=== PATIENT | male | born 1930 | race Asian ===

== ENCOUNTER 2018-10-02 08:39 | Inpatient (IN) | payer MEDICARE, OTHER ==
--- NOTE | 2018-09-21 15:26 | HP ---
HISTORY AND PHYSICAL: DATE OF ADMISSION/SURGERY: 10/02/18 DATE OF OFFICE VISIT: 09/19/18 ATTENDING SURGEON: Dr. Bharathi Morrell.* (DICTATED BY USMAN VAZQUEZ) PROCEDURE: Left total hip replacement. CHIEF COMPLAINT: Left hip pain. HISTORY OF PRESENT ILLNESS: Wandy Wu is an 88-year-old male who has had severe left hip pain due to left hip osteoarthritis. He has failed conservative treatment options and has elected to proceed with surgery. He is scheduled to undergo left total hip replacement on 10/02/[address] Morrell. PAST MEDICAL HISTORY: He has had known cardiovascular irregularity and atrial fibrillation. He has hypertension. He has a history of prostate cancer in 1998. GI obstruction, treated by Dr. Romero in 2005. He has a history of arthritis. No history of DVT or phlebitis. No history of diabetes. PAST SURGICAL HISTORY: He had right total hip replacement in October 2012. CURRENT MEDICATIONS: 1. He is on Ambien 5 mg. 2. Amlodipine besylate 5 mg. 3. Amoxicillin 500 mg. 4. Centrum Silver. 5. Lisinopril/hydrochlorothiazide 10 mg. 6. Myrbetriq. 7. Shingrix. ALLERGIES: No known drug allergies. FAMILY HISTORY: Cancer. SOCIAL HISTORY: He lives with his spouse. He is a retired professor. He quit smoking 15 years ago. He smoked 1-1/2 packs per day. He has 1 to 2 alcoholic beverages per week. Denies recreational drug use. REVIEW OF SYSTEMS: A complete 14-point review of systems was obtained, other than HPI was negative for fevers, chills. He denies any chest pain. Negative for palpitations due to his atrial fibrillation. He was positive for some weight gain and constipation. Otherwise, all other systems are negative and noncontributory. PHYSICAL EXAMINATION GENERAL: Well-developed, well-nourished 88-year-old male, in no acute distress. Alert and oriented x3. Appropriate mood and affect. HEENT: Head is normocephalic, atraumatic. NECK: Supple with no palpable lymph nodes. LUNGS: Clear to auscultation bilaterally. No wheezes, rales, or rhonchi. CARDIAC: Regular rate and rhythm. S1, S2. No murmurs, rubs, or gallops. ABDOMEN: Soft, nontender. Positive bowel sounds throughout. MUSCULOSKELETAL: His gait is markedly antalgic on the left. He has painful range of motion of the left hip with flexion at 75 degrees, abduction painful to 20 degrees. He can barely do a left leg raise. Left knee extension is 0 degrees without any difficulty. There is no left knee swelling. No knee tenderness. SKIN: Intact without rashes or lesions. IMPRESSION: Severe left hip arthritis. PLAN: The patient is scheduled to undergo left total hip replacement. He will return to the office in 10 to 14 days postoperatively for followup and suture removal. A prescription for oxycodone was sent to the patient's pharmacy for postoperative pain management. USMAN VAZQUEZ [id number]/CPS #: [id number] MTDD
[~2018-10-02 08:39] MED LIST: Acetaminophen TAB* 325 MG PO ONE; Buffered Lidocaine 1% SYRIN* 1 ML/SYRINGE INTRADERM ONE; Dexamethasone TAB* 4 MG PO ONE; DiMENhydriNATE IV* 50 MG/ML VIAL IV PUSH PRN; Famotidine IV* 10 MG/ML 2 ML (20 mg) IV ONE; Gabapentin CAP(*) 300 MG PO ONE; HYDROcodone/ACETAMIN 5-325 MG* 1 TAB PO PRN; Lactated Ringers 1000 ML Bag* 1,000 ML IV SCH; Morphine 4 MG/ML VIAL (1 ml) 4 MG/ML VIAL IV PRN; Naloxone* 0.4 MG/ML 1 ML VIAL IV PRN; Ondansetron TAB* 4 MG PO ONE; PROCHLORPERAZINE INJ 5 MG/ML 2 ML VIAL IV PRN; Tranexamic Acid 1,000 MG in NS 0.9% 50 ML* (outpatient use) IV SCH; celeCOXIB CAP* 100 MG PO ONE; fentaNYL* 50 MCG/ML 2 ML VIAL (100 MCG VIAL) IV PRN
[2018-10-02] MEDS ORDERED: Midazolam* 1 MG/ML 5 ML VIAL (5 MG) ONE (08:59)
[2018-10-02] MEDS ORDERED: fentaNYL* 50 MCG/ML 2 ML VIAL (100 MCG VIAL) ONE (08:59)
[2018-10-02] MEDS ORDERED: KETAMINE HCL* 50 MG/ML 10 ML VIAL ONE (08:59)
[2018-10-02] MEDS ORDERED: Dexamethasone TAB* 4 MG ONE (09:11)
[2018-10-02] MEDS ORDERED: Gabapentin CAP(*) 300 MG ONE (09:11)
[2018-10-02] MEDS ORDERED: Ondansetron ODT TAB* 4 MG ONE (09:11)
[2018-10-02] MEDS ORDERED: celeCOXIB CAP* 100 MG ONE (09:11)
[2018-10-02] MEDS ORDERED: Buffered Lidocaine 1% SYRIN* 1 ML/SYRINGE INTRADERM ONE (09:12)
[2018-10-02] MEDS ORDERED: Famotidine IV* 10 MG/ML 2 ML (20 mg) ONE (09:12)
[2018-10-02] MEDS ORDERED: ceFAZolin 2 GM in NS PREMIX(*) 2 GM/100 ML BAG IVPB ONE (09:12)
[2018-10-02] MEDS ORDERED: Acetaminophen TAB* 325 MG ONE (09:12)
[2018-10-02] MEDS ORDERED: Enoxaparin(*) 30 MG/0.3 ML SYR SUBCUT ONE (12:00)
[2018-10-02] MEDS ORDERED: hydrALAZINE IV* 20 MG/ML VIAL ONE (13:17)
[2018-10-02] MEDS ORDERED: Phenylephrine 10 MG/ML VIAL* 1 ML VIAL ONE (13:17)
[2018-10-02] MEDS ORDERED: Propofol* 500 MG/50 ML BTL ONE (13:17)
[2018-10-02] MEDS ORDERED: Ondansetron TAB* 4 MG PO PRN (13:25)
[2018-10-02] MEDS ORDERED: diPHENhydraMINE IV* 50 MG/ML 1 ml VIAL (BENADRYL) IV PRN (13:25)
[2018-10-02] MEDS ORDERED: Morphine 4 MG/ML VIAL (1 ml) 4 MG/ML VIAL IV PRN (13:25)
[2018-10-02] MEDS ORDERED: Ondansetron INJ* 2 MG/ML VIAL IV PRN (13:25)
[2018-10-02] MEDS ORDERED: Docusate CAP* 100 MG PO PRN (13:25)
[2018-10-02] MEDS ORDERED: Cyclobenzaprine TAB* 10 MG PO PRN (13:25)
[2018-10-02] MEDS ORDERED: diPHENhydraMINE PO* 25 MG PO PRN (13:25)
[2018-10-02] MEDS ORDERED: Magnesium Hydroxide LIQ* 30 ML UDC PO PRN (13:25)
[2018-10-02] MEDS ORDERED: oxyCODONE TAB* 5 MG TAB PO PRN (13:25)
[2018-10-02] MEDS ORDERED: Morphine INJ* 2 MG/ML 1 ML SYRINGE (TWO MG - NEW SYRINGE VERSION) IV PRN (13:51)
--- NOTE | 2018-10-02 14:32 | OP ---
DATE OF OPERATION: 10/02/18 - ROOM #339 DATE OF : 34 SURGICAL CARE: Left hip. SURGEON: Bharathi Morrell MD ASSISTANTS: USMAN Galvez, technical assistant; Breann Estrada, surgical attendant. ANESTHESIOLOGIST: Dr. Ronny Dinh. ANESTHESIA: Spinal with IV sedation. PRE-OP DIAGNOSIS: Severe degenerative arthritis of the left hip. POST-OP DIAGNOSIS: Severe degenerative arthritis of the left hip. OPERATIVE PROCEDURE: Left total hip replacement. COMPONENTS UTILIZED: Shyann Continuum cup size 54 outer diameter with one screw. An elevated liner was placed posteriorly, high density polyethylene and the liner accommodated a 36 head. On the femoral side, an M/L taper standard size 10 stem with a -3.5, 36 mm cobalt chrome head. COMPLICATIONS: There were no complications. DRAINS: There were no drains. ESTIMATED BLOOD LOSS: 200 mL. REPLACEMENT: Crystalloid fluids. Tranexamic acid was utilized at the start of the case intravenously. DESCRIPTION OF PROCEDURE: The patient was brought to the operating room and placed on the operating room table in a supine position, then a seated position for the spinal anesthetic, then returned to the supine position. A [place] catheter was inserted. The patient was placed in a right lateral position down side, right axilla padded down side, right peroneal nerve at the fibular head padded, so there was no pressure on the peroneal nerve at the fibular head. Blankets were placed between the legs. The pelvis was secured over the ASIS and the sacrum respectively. A folded blanket was placed under the right greater trochanter to bring the left hip closer to the sealing. After prepping , draping, and sealing off, we did our [place] protocol time-out confirming Tsu Jazmin Yessenia and the plan for a left total hip replacement. We all agreed and we proceeded. The patient has had a right total hip replacement. The left hip was approached with a curving posterolateral skin incision approximately 4 inches in length from the greater trochanter distally for an inch to an inch and a half and curving proximally and posteriorly for 3.5 inches. The skin and subcutaneous tissue was divided down to the iliotibial band. The iliotibial band was opened longitudinally over the greater trochanter. A Charnley retractor was inserted. Careful hemostasis was checked and achieved throughout the case utilizing electrocautery. The abductor mechanism was retracted anteriorly with a gluteus medius with a blunt Hohmann retractor, this exposed the piriformis and conjoint tendon. Each was detached from close to its piriformis fossa insertions, each was marked with a #2 Surgidac suture and this stitch also included the underlying capsular flap. The gluteus medius was also protected and then the superior capsulotomy was performed and the hip was dislocated easily and the femoral neck was marked and cut about a fingerbreadth proximal to the lesser trochanter after measuring within the cutting guide for the M/L taper stem. The head and neck was removed. The head was completely eburnated, deformed with osteophytes. There was a rim osteophyte entirely around the acetabulum. Some of this osteophyte was removed superiorly and posteriorly. A large fragment was removed posteriorly, inferiorly. The medial osteophyte was removed with osteotomes and the acetabular fossa was carefully cleaned. Retraction on the acetabulum, sharp Hohmann anteriorly and posteriorly , blunt Hohmann superiorly and inferiorly. Reaming was done 50 through 54. At 54, we had nice bleeding subchondral and cancellous bone. After cleaning the acetabulum with saline, a 54 Continuum cup was impacted into position and 45 degrees of abduction and 20 degrees of anteversion with nice tight fit. A superior screw was placed. The elevated liner was placed posteriorly, high density polyethylene type liner. On the femoral side, we used the canal finder. Trochanteric reamer broaching was done 4, 5 through 10; 10, we had a nice fit. Trial reduction was done with a +0 with some tightness. The final M/L Taper standard size 10 stem was impacted into position after cleaning the femoral canal and it was impacted in 15 to 20 degrees of anteversion. The trial reduction was done with a +0, this was too tight, so a - 3.5 was chosen. The trunnion was cleaned with a -3.5, 36 mm head cobalt chrome type was impacted on to the trunnion. The hip was reduced without difficulty. There was a negative push- pull and extension. There was no tendency towards levering with IR, ER, and extension. Flexion allowed 90 to 100 degrees with IR and adduction approaching 30 to 40 degrees prior to dislocation. During closure , we irrigated several times with saline. We swabbed the soft tissues with clean lap sponges to remove debris. Careful hemostasis was checked and achieved and the piriformis and conjoint tendon reapproximated to the posterosuperior greater trochanter through 2 drill holes utilizing the #2 Surgidac sutures. I did not think drains were necessary. The fascia cora was closed with interrupted #1 Vicryl [id number] fashion, same with the fascia on the gluteus sammy. The deep and superficial subcu closed with 0 and then 2-0 Polysorb and then suzi on the skin. The skin was washed and dried and covered with Betadine-soaked release followed by sterile gauze, ABD pad and then paper tape. The patient was carefully returned to the hospital bed and to the recovery room in stable and satisfactory condition, having tolerated the procedure very well. [id number]/CPS #: [id number] MTDRaya
[2018-10-02] MEDS: Lactated Ringers 1000 ML Bag* 1,000 ML IV SCH (15:06)
[2018-10-02] MEDS: Acetaminophen TAB* 325 MG PO SCH (17:00)
[2018-10-02] MEDS: ceFAZolin 1 GM ADVAN(*) 1 GM in NS 0.9% 50 ML* 50 ML IVPB SCH (19:59)
--- NOTE | 2018-10-02 20:36 | CONS ---
CC: USMAN Sarkar; Dr. Morrell * CONSULTATION REPORT: DATE OF CONSULT: 10/02/18 PRIMARY CARE PROVIDER: USMAN Sarkar ORTHOPEDIC SURGEON: Dr. Morrell. REQUESTING PHYSICIAN IN CONSULT: Dr. Morrell. ATTENDING PHYSICIAN: Dr. Britni Ruiz (dictated by USMAN Morales). REASON FOR CONSULTATION: Co-medical management. HISTORY OF PRESENT ILLNESS/HOSPITAL COURSE: I refer you to Dr. oMrrell's history and physical dictated on 09/21/18 for full details; but in short, Mr. Casas is an 88-year-old male with a past medical history of atrial fibrillation, hypertension, arthritis, who has failed conservative treatment and has elected to have a left total hip replacement. He is seen in his room postoperatively with no complaints of pain to the left hip. He denies chest pain, shortness of breath, abdominal pain, nausea, vomiting, diarrhea or constipation. He denies pain in the extremities. He denies fever, chills, shortness of breath, or cough. He is comfortable and again has no pain in the left hip at this time. PAST MEDICAL HISTORY: 1. Atrial fibrillation. 2. Hypertension. 3. History of prostate cancer in 1998, status post TURP. 4. Arthritis. PAST SURGICAL HISTORY: Right total hip arthroplasty in 2002, intestinal blockage. HOME MEDICATIONS: 1. Amlodipine besylate 5 mg p.o. q.a.m. 2. Lisinopril 10 mg p.o. q.a.m. 3. Lisinopril/HCTZ 20/12.5 one tab p.o. q.a.m. 4. Myrbetriq 50 mg p.o. q.a.m. 5. Zolpidem 5 mg p.o. at bedtime p.r.n. travel. ALLERGIES: No known drug allergies, environmental allergies. FAMILY HISTORY: Negative for heart disease, cancer, CVA, diabetes. SOCIAL HISTORY: The patient states he quit smoking approximately 15 years ago. Prior to that, he smoked for approximately 20 years, half pack per day. He drinks alcohol weekly, but not daily. He is a retired [employer] professor. In the event that he is unable to make his own medical decisions, he has appointed his and healthcare proxy, Allison Casas to be his surrogate decision maker. REVIEW OF SYSTEMS: A 10-point review of systems was performed and all the pertinent positives and negatives are in the HPI. All other systems are negative. PHYSICAL EXAM: General: Mr. Casas is a well developed and well nourished. He is resting comfortably in bed. He is in no acute distress. He is pleasant and cooperative. HEENT: PERRL. EOMI. Nonicteric sclerae. Hearing grossly intact. Oral mucous membranes are moist. There are no lesions. The pharynx is clear. Cardiopulmonary: Regular rate and rhythm with S1, S2 present without murmurs, rubs, clicks, or gallops. There is no JVD. Respiratory: Symmetrical chest expansion without use of accessory muscles. Lungs are clear to auscultation bilaterally without wheeze, rhonchi, or rales. Abdomen: Flat. Bowel sounds noted in all quadrants. The abdomen is soft. There is no tenderness to palpation. Extremities: Upper extremity skin warm and smooth bilaterally. Lower extremity skin with chronic venous stasis changes and small amount of flaking skin. There is no edema. There is a left hip dressing that is clean, dry and intact. Ice pack in place. Pedal pulses are palpable. Sensation intact. Capillary refill less than 2 seconds. Neuro: The patient is awake, he is alert and oriented x3. Cranial nerves grossly intact. He is able to move all of his extremities. ASSESSMENT AND PLAN: Mr. Casas is an 88-year-old male with a past medical history of atrial fibrillation, hypertension, prostate cancer and arthritis, who presented to [facility] today for an elective left total knee arthroplasty. The patient will be admitted inpatient for: 1. Left total knee arthroplasty postop day 0. Management per Ortho Team. 2. Atrial fibrillation. The patient has a history of atrial fibrillation and is not on anticoagulation or rate controlling agents. Currently with regular rate and rhythm. Will continue to monitor. 3. Hypertension. Continue amlodipine 5, lisinopril 10 and lisinopril/HCTZ. 4. DVT prophylaxis. Per Ortho, the patient has been placed on Lovenox 30 subcu. 5. Code status. Full code. TIME SPENT: Approximately 30 minutes were spent on this consultation, greater than half of that time was spent [id number] with the patient obtaining history , performing physical, and reviewing the plan of care. The case has been reviewed with my attending Dr. Ruiz, who is in agreement with the plan of care. GUSTAVO SUMNER, USMAN [id number]/[facility] #: [id number] [facility]
[2018-10-02] MEDS: Magnesium Hydroxide LIQ* 30 ML UDC PO SCH (20:49)
[2018-10-02] MEDS: oxyCODONE TAB* 5 MG TAB PO PRN (20:49)
[2018-10-03] MEDS: Lactated Ringers 1000 ML Bag* 1,000 ML IV SCH (01:06)
[2018-10-03] MEDS: Acetaminophen TAB* 325 MG PO SCH ×3 (01:46→16:57)
[2018-10-03] MEDS: traMADol TAB* 50 MG PO PRN ×2 (02:01→08:08)
[2018-10-03] MEDS: ceFAZolin 1 GM ADVAN(*) 1 GM in NS 0.9% 50 ML* 50 ML IVPB SCH ×2 (04:22→12:06)
[2018-10-03] MEDS: oxyCODONE TAB* 5 MG TAB PO PRN (06:10)
[2018-10-03 06:14] LABS: Hematocrit 38 % (42-52); Hemoglobin 12.9 g/dL (14.0-18.0); Mean Platelet Volume 7.3 fL (7.4-10.4); Platelet Count 195 10^3/uL (150-450)
[2018-10-03 06:30] LABS: Calcium 8.7 mg/dL (8.6-10.3); EGFR African American 96.8 (>60); Potassium 3.8 mmol/L (3.5-5.0)
[2018-10-03] MEDS: Magnesium Hydroxide LIQ* 30 ML UDC PO SCH ×2 (08:06→20:48)
[2018-10-03] MEDS: Lisinopril TAB* 10 MG PO SCH (08:06)
[2018-10-03] MEDS: amLODIPine TAB* 5 MG PO SCH (08:08)
[2018-10-03] MEDS: Hydrochlorothiazide TAB* 25 MG PO SCH (08:08)
[2018-10-03] MEDS: Mirabegron (NF) 50 MG TAB PO SCH (08:09)
[2018-10-03] MEDS ORDERED: Lisinopril/HCTZ 20/12.5(NF) TAB PO SCH (09:00)
--- NOTE | 2018-10-03 11:17 | PN ---
Progress Note - Progress Note Date of Service: 10/03/18 Note: POD#1 VVStable. Hct 38%. Lytes are OK. X-ray left hip all satisfactory. Awake, alert, cooperative, and breathing easily. Left hip dry and left PT pulse is 2 plus. I/O 2390/4325. Exercises done left and right ankles, moving up, down, in , and out Imp: Stable. Plans Up with walker, drinking and incentive spirometer. Plans: Return to [facility] soon.
[2018-10-03] MEDS ORDERED: Enoxaparin(*) 30 MG/0.3 ML SYR SUBCUT ONE (12:00)
[2018-10-04] MEDS: Acetaminophen TAB* 325 MG PO SCH ×2 (01:43→08:12)
[2018-10-04 05:04] LABS: Hematocrit 36 % (42-52); Hemoglobin 12.3 g/dL (14.0-18.0); Mean Platelet Volume 7.2 fL (7.4-10.4); Platelet Count 177 10^3/uL (150-450)
[2018-10-04] MEDS: Lisinopril TAB* 10 MG PO SCH (08:12)
[2018-10-04] MEDS: Magnesium Hydroxide LIQ* 30 ML UDC PO SCH (08:12)
[2018-10-04] MEDS: amLODIPine TAB* 5 MG PO SCH (08:13)
[2018-10-04] MEDS: Hydrochlorothiazide TAB* 25 MG PO SCH (08:13)
[2018-10-04] MEDS: Mirabegron (NF) 50 MG TAB PO SCH (08:16)
[2018-10-04] MEDS ORDERED: Rivaroxaban TAB(*) 10 MG PO SCH (09:00)
--- NOTE | 2018-10-04 09:28 | PN ---
Progress Note - Progress Note Date of Service: 10/04/18 SOAP: Subjective: []Pt seen and examined at bedside, he is feeling quite well and ready for DC back to [place]. Denies any CP, SOB, dizziness, nausea. Reports many years of a fib, he is not on anticoagulation at home. Objective: []General: Appears well, NAD LLE: Left hip dressing changed, incision CDI, thigh soft, Active F/E at ankle, knee and hip intact. Able to sit to stand independently with stand by assist. Sensation intact to light touch distally, DP2+ Calves supple and nontender without erythema, edema or palpable cords Assessment: []POD 2 sp LTH replacement Plan: []WBAT with posterior hip precautions PT/OT DVT prophy: Intend Xarelto 10 mg qd x 1 week then ASA 325 mg daily for an additional 3 weeks Vital Signs Temp 98.0 F 10/04/18 07:39 Pulse 92 10/04/18 07:39 Resp 16 10/04/18 08:00 BP 160/78 10/04/18 07:39 Pulse Ox 95 10/04/18 08:00 Intake & Output 10/03/18 10/04/18 10/04/18 18:59 06:59 18:59 Intake Total 3385 690 710 Output Total 1000 1550 450 Balance 2385 -860 260 Intake: IV Fluids 2009 NS 20 Medicated IV 55 Cefazolin 55 Oral 1320 690 710 Output: Urine 1000 1550 450 Other: # Bowel Movements 0 Laboratory Last Values Hgb 12.3 g/dL (14.0-18.0) L 10/04/18 04:42 Hct 36 % (42-52) L 10/04/18 04:42 Plt Count 177 10^3/uL (150-450) 10/04/18 04:42 MPV 7.2 fL (7.4-10.4) L 10/04/18 04:42 Sodium 137 mmol/L (135-145) 10/04/18 04:42 Potassium 3.8 mmol/L (3.5-5.0) 10/03/18 05:38 Chloride 104 mmol/L (101-111) 10/03/18 05:38 Carbon Dioxide 26 mmol/L (22-32) 10/03/18 05:38 Anion Gap 4 mmol/L (2-11) 10/03/18 05:38 BUN 18 mg/dL (6-24) 10/03/18 05:38 Creatinine 0.90 mg/dL (0.67-1.17) 10/03/18 05:38 Est GFR ( Amer) 96.8 (>60) 10/03/18 05:38 Est GFR (Non-Af Amer) 80.0 (>60) 10/03/18 05:38 BUN/Creatinine Ratio 20.0 (8-20) 10/03/18 05:38 Glucose 133 mg/dL (70-100) H 10/03/18 05:38 Calcium 8.7 mg/dL (8.6-10.3) 10/03/18 05:38
--- NOTE | 2018-10-04 10:01 | CONSULT ---
Subjective Date of Service: 10/04/18 Interval History: Called for tachycardia to 170 while working with PT, now resting is low 100s. EKG ordered. Showed NSR 98. Review of Systems - Measurements Intake and Output: Intake and Output Last 24 Hours 10/02/18 10/03/18 10/04/18 10/05/18 06:59 06:59 06:59 06:59 Intake Total 2390 4075 710 Output Total 4325 2550 450 Balance -1935 1525 260 Weight 172 lb Intake: IV Fluids 1999 2009 LR 1989 NS 20 lr 1999 Medicated IV 55 Cefazolin 55 Oral 390 2009 710 Output: Urine 800 2550 450 [place] 3525 Other: # Bowel Movements 0 0 Objective Active Medications: Acetaminophen (Tylenol Tab*) 975 mg PO Q8H [facility] Last Admin: 10/04/18 08:12 Dose: 975 mg Amlodipine Besylate (Norvasc Tab*) 5 mg PO QAM [facility] Last Admin: 10/04/18 08:13 Dose: 5 mg Diphenhydramine HCl (Benadryl Iv*) 25 mg IV Q6H PRN PRN Reason: itching Diphenhydramine HCl (Benadryl Po*) 25 mg PO Q6H PRN PRN Reason: itching Docusate Sodium (Colace Cap*) 100 mg PO BID PRN PRN Reason: CONSTIPATION Last Admin: 10/04/18 08:13 Dose: 100 mg Hydrochlorothiazide (Hydrodiuril Tab*) 12.5 mg PO DAILY [facility] Last Admin: 10/04/18 08:13 Dose: 12.5 mg Lactated Ringer's (Lactated Ringers 1000 Ml Bag*) 1,000 mls @ 100 mls/hr IV PER RATE [facility] Last Admin: 10/03/18 01:06 Dose: 100 mls/hr Lisinopril (Prinivil Tab*) 30 mg PO QAM [facility] Last Admin: 10/04/18 08:12 Dose: 30 mg Magnesium Hydroxide (Milk Of Magnesia Liq*) 30 ml PO BID [facility] Last Admin: 10/04/18 08:12 Dose: 30 ml Magnesium Hydroxide (Milk Of Magnesia Liq*) 30 ml PO Q6H PRN PRN Reason: constipation Mirabegron (Myrbetriq (Nf)) 50 mg PO QAM [facility] Last Admin: 10/04/18 08:16 Dose: Not Given Morphine Sulfate (Morphine Inj (Syringe))*) 1 mg IV Q4H PRN PRN Reason: PAIN - SEVERE Ondansetron HCl (Zofran Inj*) 4 mg IV Q6H PRN PRN Reason: nausea Ondansetron HCl (Zofran Tab*) 4 mg PO Q6H PRN PRN Reason: NAUSEA Oxycodone HCl (Roxycodone Tab*) 5 mg PO Q4H PRN PRN Reason: PAIN - SEVERE Last Admin: 10/03/18 06:10 Dose: 5 mg Rivaroxaban (Xarelto(*)) 10 mg PO DAILY [facility] Last Admin: 10/04/18 08:12 Dose: 10 mg Tramadol HCl (Ultram*) 50 mg PO Q6H PRN PRN Reason: PAIN - BREAKTHROUGH Last Admin: 10/03/18 08:08 Dose: 50 mg Vital Signs - 8 hr 10/04/18 10/04/18 10/04/18 03:37 07:39 08:00 Temperature 98.2 F 98.0 F Pulse Rate 85 92 Respiratory 16 16 16 Rate Blood Pressure 136/59 160/78 (mmHg) O2 Sat by Pulse 95 95 95 Oximetry Oxygen Devices in Use Now: None Appearance: well appearing, alert and conversant Ears/Nose/Mouth/Throat: Clear Oropharnyx, Mucous Membranes Moist Neck: NL Appearance and Movements; NL JVP, Trachea Midline Respiratory: Symmetrical Chest Expansion and Respiratory Effort, Clear to Auscultation Cardiovascular: NL Sounds; No Murmurs; No JVD, RRR Abdominal: NL Sounds; No Tenderness; No Distention, No Hepatosplenomegaly Extremities: No Edema, No Clubbing, Cyanosis Skin: No Rash or Ulcers Neurological: Alert and Oriented x 3, NL Muscle Strength and Tone Result Diagrams: 10/04/18 04:42 10/04/18 04:42 Assessment/Plan - Billing Mr. Casas is an 88M with history of afib not on AC (possibly in NSR for decades and never on rate-control), HTN, prostate cancer, arthritis, who was admitted for elective total L knee arthroplasty. 1. Remote history of atrial fibrillation. CHADSVASc is 3. Patient reports NSR for decades and that he made the decision with his PCP to not have anticoagulation. 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 HTN. Continue home regimen of lisinopril, HCTZ, and amlodipine Thank you for this consult.
[2018-10-04 11:22] VITALS: BP 124/60
--- NOTE | 2018-10-04 12:01 | DS ---
Orthopedic Discharge Summary - Discharge Summary Date of Admission:10/02/18 Date of Discharge: 10/04/18 Date of Surgery: 10/02/18 Attending Orthopedic Provider: Dr Morrell Pre-operative Diagnosis: Left hip osteoarthritis Operative Procedure: Left total hip replacement Disposition of Patient: [facility] Condition of Patient: stable History: ABHISHEK HEIN is a 88 year old M with years of increasingly severe left hip pain. Patient has failed conservative management and has elected to undergo a left total hip replacement Hospital Course: ABHISHEK was admitted to [facility] on 10/02/18. Patient underwent a without complication followed by a brief recovery in PACU and transfer to the Short Stay Surgical Unit in stable condition. Our hospitalist service, physical therapy and occupational therapy also participated in this patients care. Post-op day 1: patient was alert and in no acute distress. Dressing was clean, dry and intact. Operative extremity dorsiflexion and plantarflexion intact, sensation intact to light touch distally, DP2+. Post-op day two: dressing was changed, incision was clean, dry and intact. Discussed anticoagulation with Dr Morrell as well as our hospitalist Dr Faulkner who agrees xarelto 10mg qd x 1 week followed by aspirin 325 mg qd x an additional 3 weeks is appropriate. Patient was deemed to be medically and orthopedically stable for discharge to [facility]. Physical therapy goals were met. Home Medications Medication Instructions Recorded Confirmed Type Zolpidem TAB* [Ambien*] 5 mg PO BEDTIME PRN 10/17/12 10/02/18 History Lisinopril/HCTZ 20/12.5(NF) 1 tab PO QAM 12/11/12 10/02/18 History [Zestoretic 20/12.5(NF)] Lisinopril TAB* [Prinivil TAB 10 10 mg PO QAM 01/06/14 10/02/18 History MG*] Amlodipine Besylate [Norvasc] 5 mg PO QAM 09/20/18 10/02/18 History Mirabegron [Myrbetriq] 50 mg PO QAM 09/20/18 10/02/18 History Acetaminophen TAB* [Tylenol TAB*] 975 mg PO Q8H #0 tab 10/04/18 Rx Aspirin TAB* [Aspirin 325 MG TAB*] 325 mg PO DAILY #30 tab 10/04/18 Rx Rivaroxaban TAB(*) [Xarelto 10 mg 10 mg PO DAILY #7 tab 10/04/18 Rx (*)] oxyCODONE TAB* [Roxycodone TAB 5 5 mg PO Q4H PRN #30 tab MDD 10 10/04/18 Rx mg*] Discharge Instructions following Orthopedic Surgery: Activity: * Weight Bearing as tolerated * Continue physical therapy and occupational therapy exercises as shown Hip replacements: Continue Hip Precautions- do not cross legs or bend greater than 90 degrees/squat Wound care: * OK to shower on post-op day 3, no bathing, swimming, or submerging wound. * Use gentle soap, pat dry. Cover with gauze, ZORAN wrap or tape. * [facility] nurse to do wound checks. Remove suzi 2 weeks post op Call Orthopedic office for: * Increased drainage * Redness * Increased pain * Fever Go to ER with shortness of breath or chest pain. Diet: * Regular diet * Increase fluids and fiber to prevent constipation. * Continue to use stool softeners, call office if no bowel motion within 48 hours. Medications See Home Medication List in your packet for medications that you should take after discharge. DVT Prophylaxis: Xarelto Dosin mg daily x 7 days then once xarelto is done transition to Aspirin 325 mg daily for an additional 3 weeks for a total duration of 1 month DVT prophylaxis. Pain Control: Oxycodone 5 mg 1-2 tabs by mouth every 4-6 hours as needed for pain. Maximum of 6 tabs per day. Hold for sedation. wean off as soon as pain allows Maximum daily dose of Tylenol is 4000 mg from all sources. Antibiotics are required prior to any dental work. FOLLOW UP: Follow up with [Petros] Within 4 weeks, call for appointment Please call our office with any questions or concerns ([phone])
== END 2018-10-04 13:35 | DRG 470 ==
LOC: AA 08:39 → SSU 15:03
PROVIDERS: ADMIT Orthopaedic Surgery; ATTEND Orthopaedic Surgery
PROC: 0SRB02A Replacement of Left Hip Joint with Metal on Polyethylene Synthetic Substitute, Uncemented, Open Approach (ICD-10-PCS; principal; 2018-10-02 10:30)
DX: M16.12 Unilateral primary osteoarthritis, left hip (principal); I48.91 Unspecified atrial fibrillation; I10 Essential (primary) hypertension; Z96.641 Presence of right artificial hip joint; K59.00 Constipation, unspecified; N32.81 Overactive bladder; R73.01 Impaired fasting glucose; R00.0 Tachycardia, unspecified; M25.752 Osteophyte, left hip; Z85.46 Personal history of malignant neoplasm of prostate; Z80.9 Family history of malignant neoplasm, unspecified; Z87.891 Personal history of nicotine dependence; Z72.89 Other problems related to lifestyle; Z90.79 Acquired absence of other genital organ(s)
CPT/HCPCS: 36415; 72170; 80048; 84300; 85014; 85018; 85049; 93005; A9270-GY; C1713; C1776; G8978-GP-CL; G8979-GP-CJ; J0360; J0690; J1650; J2250; J2704; J3010; J8540